=== PATIENT | male | born 1960 | race Caucasian/White ===

== ENCOUNTER → 2017-04-08 | Outpatient (CLI) | payer MEDICARE ==
[~2017-04-08] MED LIST: ADVAIR 250/5028 PUFF IN; ALBUTEROL-200 PUFFS/ IH; ASACOL; ASPIRIN 81MG TA81 MG PO; FLEXERIL10 M1 PO; FLEXERIL10 MG PO; GABAPENTIN 600600 MG PO; HYDROCODONE1 TABLET PO; LISINOPRIL HCTZ1 TAB PO; LISINOPRIL/HCTZ1 TA3 PO; LORTAB 5/500 501 TAB PO; MEDROL 4MG. DOSE4 MG PO; PERCOCET 10 MG1 EACH PO; PRAVASTATIN 40M40 MG PO; PREDNISONE 20MG20 MG PO; ULTRACET 325 MG1 TAB PO; VICODIN 5/500 T1 TAB PO; VICODIN 5/6 EACH/PAK OR; VICODIN ES 7501 TAB PO; XANAX 1MG TABLET1 MG PO; ZITHROMAX Z-PA250 M1 PO
--- NOTE | 2017-04-08 18:06 | RADIOLOGY REPORT PS360 ---
PROCEDURE: 2-D M-mode and color Doppler study INDICATIONS FOR THE TEST: Chest pain X COPDX Heart Murmur Tobacco SmokingX Palpitations Fatigue Syncope Edema HypertensionXDiabetes Mellitus Rheumatic Fever SOBXDOEXObesity HyperlipidemiaX Family History HD Additional History CAD PATIENT INFORMATION HEIGHT: 68 WEIGHT:167 GENDER: Male B/P:185/91 2-D/M-MODE INTERPRETATION: 2-D MEASUREMENTS OBSERVED VALUES IN CMS Right Ventricular Dimension (RVDd) 3.0 Interventricular Septum (Thickness)(IVsd) 1.2 Left Ventricular Internal Dimensions(LVIDd) 4.9 Left Ventricular Posterior Wall (Thickness)(LVPWd) .9 Aortic Root 2.8 Aortic Cusp Separation 1.8 Left Atrial Dimensions (LAD) 2.6 2D 1. Left atrium is qualitatively mildly enlarged, left ventricle is normal size, there is no concentric left ventricular hypertrophy, visually estimated ejection fraction 55% with no wall motion abnormality. 2. The right atrium and right ventricle are normal size and contractility. 3. The aortic valve is minimally thickened. 4. The mitral and tricuspid valve are grossly normal. 5. The pulmonic valve is poorly visualized. 6. Trivial pericardial effusion noted. DOPPLER INTERROGATION: Doppler interrogation of the aortic, mitral and tricuspid valvular presence of mild mitral and tricuspid regurgitation, tricuspid and jet velocity insufficient for calculation of the right ventricular systolic pressure, grade 1 diastolic dysfunction seen without tissue Doppler evidence of raised left atrial pressure. CONCLUSION: 1. Normal left ventricular size preserved left ventricular systolic function visually estimated ejection fraction 55% with no obvious regional wall motion abnormality, grade 1 diastolic dysfunction seen without tissue Doppler evidence of raised left atrial pressure. 2. Mild mitral and tricuspid regurgitation. 3. Trivial pericardial effusion noted.
--- NOTE | 2017-04-11 14:48 | RADIOLOGY REPORT PS360 ---
History and Indications: History of PA, hypertension, hyperlipidemia, tobacco use, family history, chest pain, shortness of breath and fatigue Procedure: Patient received a 0.4 mg of Lexiscan, resting heart rate was 51 bpm, resting blood pressure 152/91, with Lexiscan maximum heart rate achieved was 109 bpm which is less than 85% of the maximum predicted heart rate and a blood pressure was 135/81. With Lexiscan patient complained of shortness of breath, chest pressure and tightness. Electrocardiogram: Resting electrocardiogram showed sinus bradycardia, rightward axis, with Lexiscan there is less than 1.[address] segment depression noted from the baseline EKG. The EKG portion of the Lexiscan Myoview is nondiagnostic. Cardiac stress and resting SPECT images: Cardiac stress and rest SPECT images were obtained using technetium 99 Myoview 10.9 mCi at rest and 31.1 mCi at stress, gated SPECT further analysis of segmental wall motion and calculation of ejection fraction also done. Cardiac stress and rest SPECT images show mild decreased tracer activity remain free wall with normal contractility in the gated SPECT is likely secondary to soft tissue attenuation, no reversible ischemia seen. Computer derived ejection fraction is 56% with no obvious regional wall motion abnormality, right ventricle is normal size and contractility. Conclusion: 1. The EKG portion of the Lexiscan Myoview is nondiagnostic 2. No obvious scintigraphic evidence of reversible ischemia seen, computer derived ejection fraction is 56% with no obvious regional wall motion abnormality, right ventricle is normal size and contractility.
== END ==
LOC: RAD 06:30
DX: R94.31 Abnormal electrocardiogram [ECG] [EKG] (principal); R07.9 Chest pain, unspecified; R06.02 Shortness of breath; I25.10 Atherosclerotic heart disease of native coronary artery without angina pectoris; I10 Essential (primary) hypertension; J44.9 Chronic obstructive pulmonary disease, unspecified
CPT/HCPCS: A9502; J2785

== ENCOUNTER → 2017-04-26 | Outpatient (CLI) | payer MEDICARE ==
[2017-04-26 11:01] LABS: BILIRUBIN, INDIRECT 0.05 mg/dL (0-0.9)
== END ==
LOC: LAB 09:26
PROVIDERS: Internal Medicine Cardiovascular Disease
DX: I25.10 Atherosclerotic heart disease of native coronary artery without angina pectoris (principal); I10 Essential (primary) hypertension; G89.29 Other chronic pain